=== PATIENT | male | born 1990 | race Caucasian/White ===

== ENCOUNTER 2019-11-11 23:27 | Emergency (ER) | payer OTHER ==
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
[2019-11-12] MEDS ORDERED: Naproxen 500 MG Tab PO ONE (01:09)
--- NOTE | 2019-11-12 06:03 | CT ---
CT chest Technique: Multiple axial sections through the chest were obtained. Intravenous contrast was not utilized. Comparison: No prior chest imaging is available. Findings: Visualized upper abdominal structures show nothing acute. No pericardial thickening is seen. No coronary artery calcification is noted. Thoracic aorta shows minimal atherosclerotic plaque. No aneurysm is seen. Mediastinum and hilar region show no adenopathy or mass. No axillary adenopathy is identified. Lung window settings were reviewed. No acute parenchymal process is seen. No pleural effusions are noted. No pneumothorax is seen. Bone window settings were reviewed. No acute osseous finding is seen. Minimal degenerative change is seen within the lower thoracic spine. Impression: 1. Findings believed to be incidental as noted above. 2. Nothing acute is appreciated on CT study of the chest. Diagnostic code #2 This report was dictated in MDT I agree with preliminary report from shay, finalized on , 2:05 AM Central Daylight Time
== END 2019-11-12 01:20 | disposition home or self-care (01) ==
LOC: JD.ED 23:27
DX: S29.012A Strain of muscle and tendon of back wall of thorax, initial encounter (principal); Z88.0 Allergy status to penicillin; V86.59XA Driver of other special all-terrain or other off-road motor vehicle injured in nontraffic accident, initial encounter
CPT/HCPCS: 71250; 99283; A9270